=== PATIENT | female | born 1970 | race Two or more races ===

== ENCOUNTER 2017-06-21 06:07 | Emergency (ER) | payer MEDICARE, MEDICAID ==
[~2017-06-21] VITALS: Ht 157.5 cm; Wt 63.5 kg
[~2017-06-21 06:07] MED LIST: LANTUS SOL100 UNIT/1 SUBQ; METFORMIN HCL1000 M1 ORAL; [UNRECOGNIZED DRUG - REMARK]
[2017-06-21 06:25] VITALS: BP 213/79
[2017-06-21] MEDS ORDERED: ISOSORBIDE MONO20 MG PO (06:33)
[2017-06-21] MEDS ORDERED: METOPROLOL TAR100 M1 ORAL (06:33)
[2017-06-21] MEDS ORDERED: LISINOPRIL30 MG ORAL (06:33)
[2017-06-21] MEDS ORDERED: LYRICA75 M1 ORAL (06:33)
[2017-06-21] MEDS ORDERED: MINOXIDIL2.5 MG PO (06:33)
[2017-06-21] MEDS ORDERED: CALCIUM ACETAT667 M1 PO (06:33)
[2017-06-21] MEDS ORDERED: TRAZODONE HCL150 MG ORAL (06:33)
[2017-06-21] MEDS ORDERED: METOCLOPRA10 MG/10 M ORAL (06:33)
[2017-06-21] MEDS ORDERED: CATAPRES0.2 MG ORAL (06:33)
[2017-06-21] MEDS ORDERED: AMLODIPINE BESY10 MG ORAL (06:33)
[2017-06-21] MEDS ORDERED: Nitroglycerin Subl 0.4mg tab (Bottle Of 25) SL ONE (06:45)
[2017-06-21] MEDS ORDERED: Nitroglycerin Subl 0.4mg tab (Bottle Of 25) SL PRN (06:45)
--- NOTE | 2017-06-21 06:58 | Emergency Room Report ---
History of Present Illness General Chief Complaint: Hypertension Source: Patient, EMS Present Illness HPI This is a 46-year-old female who presented after increased epigastric pain and chest pain. Patient was brought in by EMS. Patient is a dialysis patient. She she is normally dialyzed Saturday and Saturday. She denied having any fever. She had not been vomiting. Patient had the history of hypertension. She had been taking multiple medications. She denied any shortness of breath. The patient onset of symptoms approximately 5:00 this morning.She had onset during rest. Allergies: Coded Allergies: Mushroom (Verified Allergy, Severe, Anaphylaxis, 09/24/13) PENICILLINS (Verified Allergy, Severe, Anaphylaxis, 09/24/13) Uncoded Allergies: PENICILLIN (Allergy, Mild, 06/21/17) Patient History Past Medical History: HTN, renal disease Last Menstrual Period: 2010 Now: No : 5 Para: 5 Reviewed Nursing Documentation: PMH: Agreed, PSxH: Agreed Nursing Documentation-PMH Hx Cardiac Problems: No Hx Hypertension: Yes Hx Diabetes: Yes Hx Cancer: Yes Hx Gastrointestinal Problems: Yes Hx Dialysis: Yes - M, W, F Hx Neurological Problems: No Review of Systems All Other Systems: negative except mentioned in HPI Physical Exam Vital Signs Date Time Temp Pulse Resp B/P Pulse Ox O2 Delivery O2 Flow Rate FiO2 06/21/17 06:18 97.9 79 15 213/79 97 Room Air Sp02 EP Interpretation: reviewed, normal General Appearance: normal inspection, well appearing, no apparent distress, alert, GCS 15, non-toxic Head: atraumatic ENT: normal ENT inspection, hearing grossly normal, normal voice Neck: normal inspection, full range of motion, supple, no bony tend Respiratory: normal inspection, lungs clear, normal breath sounds, no respiratory distress, no retraction, no wheezing Cardiovascular #1: regular rate, rhythm, no edema Gastrointestinal: normal inspection, normal bowel sounds, non tender, soft, no guarding, no hernia Genitourinary: no CVA tenderness Musculoskeletal: normal inspection, back normal, normal range of motion Neurologic: normal inspection, alert, oriented x3, responsive, 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 Differential diagnoses included ischemic bowel, appendicitis, perforated viscus, abdominal aortic aneurysm, inferior myocardial infarction, viral gastroenteritis Because of complexity of patient's case laboratory testing and imaging studies were ordered.Patient was given medications for blood pressure as well as oral pain medication. Patient was noted to have improvement. The patient was offered admission to the hospital however she declined. Patient was subsequently taken to her dialysis appointment. EKG interpreted by me showed normal sinus rhythm without acute ST or T wave changes. Labs Test 06/21/17 06:35 White Blood Count 8.5 K/UL (4.8-10.8) Red Blood Count 3.87 M/UL (4.20-5.40) Hemoglobin 10.8 G/DL (12.0-16.0) Hematocrit 34.2 % (37.0-47.0) Mean Corpuscular Volume 88 FL (80-99) Mean Corpuscular Hemoglobin 27.8 PG (27.0-31.0) Mean Corpuscular Hemoglobin Concent 31.5 G/DL (32.0-36.0) Red Cell Distribution Width 14.6 % (11.6-14.8) Platelet Count 148 K/UL (150-450) Mean Platelet Volume 6.8 FL (6.5-10.1) Neutrophils (%) (Auto) 73.3 % (45.0-75.0) Lymphocytes (%) (Auto) 16.0 % (20.0-45.0) Monocytes (%) (Auto) 7.6 % (1.0-10.0) Eosinophils (%) (Auto) 2.4 % (0.0-3.0) Basophils (%) (Auto) 0.7 % (0.0-2.0) Prothrombin Time 11.4 SEC (9.30-11.50) Prothromb Time International Ratio 1.1 (0.9-1.1) Activated Partial Thromboplast Time 22 SEC (23-33) Sodium Level 140 mEQ/L (135-145) Potassium Level 4.4 mEQ/L (3.4-4.9) Chloride Level 89 mEQ/L (98-107) Carbon Dioxide Level 26 mEQ/L (20-30) Anion Gap 25 (5-15) Blood Urea Nitrogen 30 mg/dL (7-23) Creatinine 4.5 mg/dL (0.5-0.9) Estimat Glomerular Filtration Rate 10.5 mL/min (>60) Glucose Level 200 mg/dL (74-106) Calcium Level 9.2 mg/dL (8.6-10.2) Total Bilirubin 0.3 mg/dL (0.0-1.2) Aspartate Amino Transf (AST/SGOT) 9 U/L (5-40) Alanine Aminotransferase (ALT/SGPT) 5 U/L (3-33) Alkaline Phosphatase 137 U/L (35-104) Troponin I < 0.30 ng/mL (<=0.30) Total Protein 7.5 g/dL (6.6-8.7) Albumin 3.9 g/dL (3.5-5.2) Globulin 3.6 g/dL Albumin/Globulin Ratio 1.0 (1.0-2.7) Lipase 13 U/L (< 60) EKG Diagnostic Results Rate: normal Rhythm: NSR ST Segments: no acute changes Rhythm Strip Diag. Results EP Interpretation: yes Rhythm: NSR, no PVC's, no ectopy Last Vital Signs Date Time Temp Pulse Resp B/P Pulse Ox O2 Delivery O2 Flow Rate FiO2 06/21/17 06:53 213/79 06/21/17 06:18 97.9 79 15 97 Room Air Status: improved Disposition: HOME, SELF-CARE Condition: Stable ClementCorey Jun 21, 2017 06:58
[2017-06-21] MEDS ORDERED: Morphine Sulfate 4mg/ml Inj IVP ONE (07:00)
[2017-06-21 07:05] LABS: BASOPHILS % (AUTO) 0.7 % (0.0-2.0); EOSINOPHILS % (AUTO) 2.4 % (0.0-3.0); MEAN CORPUSCULAR HEMOGLOBIN 27.8 PG (27.0-31.0); MEAN CORPUSCULAR HGB CONC 31.5 G/DL (32.0-36.0); MEAN CORPUSCULAR VOLUME 88 FL (80-99); MEAN PLATELET VOLUME 6.8 FL (6.5-10.1); MONOCYTES % (AUTO) 7.6 % (1.0-10.0); NEUTROPHILS % (AUTO) 73.3 % (45.0-75.0); PLATELET COUNT 148 K/UL (150-450); RED BLOOD COUNT 3.87 M/UL (4.20-5.40); RED CELL DISTRIBUTION WIDTH 14.6 % (11.6-14.8); WHITE BLOOD COUNT 8.5 K/UL (4.8-10.8)
[2017-06-21 07:12] LABS: INR 1.1 (0.9-1.1); PROTHROMBIN TIME 11.4 SEC (9.30-11.50)
[2017-06-21 07:15] LABS: TROPONIN I < 0.30 ng/mL (<=0.30)
[2017-06-21 07:16] LABS: CALCIUM 9.2 mg/dL (8.6-10.2); CREATININE 4.5 mg/dL (0.5-0.9); GLOMERULAR FILTRATION RATE 10.5 mL/min (>60); POTASSIUM 4.4 mEQ/L (3.4-4.9); TOTAL PROTEIN 7.5 g/dL (6.6-8.7)
[2017-06-21] MEDS ORDERED: Lidocaine 2% Visc 15ml soln ORAL ONE (10:15)
[2017-06-21] MEDS ORDERED: Dicyclomine HCl 10mg/5ml oral soln ORAL ONE (10:15)
--- NOTE | 2017-06-21 10:29 | Diagnostic Imaging Report ---
Indication: Dyspnea Comparison: 09/30/13 A single view chest radiograph was obtained. Findings: Interstitial opacities and prominent vascularity and heart size are noted. There is a probable left pleural effusion. Impression: Interstitial edema suspected.
[2017-06-21] MEDS ORDERED: cloNIDine 0.2mg Tab ORAL ONE (10:45)
[2017-06-21 11:05] VITALS: BP 182/77
--- NOTE | 2017-06-23 17:55 | Cardiology Report ---
APPROVED REPORT EKG Measurement Heart [id number] Normal sinus rhythm Possible Anterior infarct, age undetermined Abnormal ECG
== END 2017-06-21 11:05 | disposition home or self-care (01) ==
LOC: EDBD 06:07 → EMR 07:11
DX: I12.0 Hypertensive chronic kidney disease with stage 5 chronic kidney disease or end stage renal disease (principal); E11.22 Type 2 diabetes mellitus with diabetic chronic kidney disease; N18.6 End stage renal disease; Z99.2 Dependence on renal dialysis; Z88.0 Allergy status to penicillin; Z91.018 Allergy to other foods
CPT/HCPCS: 36415; 71010; 80053; 83690; 84484; 85025; 85610; 85730; 93005; 96374; 96375; 99284; J0360; J2270; J2405